=== PATIENT | female | born 1950 | race Caucasian/White ===

== ENCOUNTER 2023-01-30 07:20 | Day surgery (SDC) | payer MEDICARE, SELFPAY ==
--- NOTE | 2023-01-30 07:32 | FL_ITS ---
[address] [address] Patient Name: REINALDO MOONEY MRN: [id number] date: 1950 Sex: F Assigned Patient Location: [place] Current Patient Location: [place] Accession/Order Number: [id number] Exam Date: 01/30/2023 08:00 Report Date: 01/30/2023 12:33 At the request of: NON-STAFF PHYSICIAN Procedure: FL guided needle placement EXAMINATION: FL arthrogram hip LT HISTORY: Left Hip Degenerative Disease COMPARISON: No relevant comparison available. TECHNIQUE: An arthrogram was performed under fluoroscopic guidance using non-ionic contrast material in the usual sterile manner after obtaining informed consent. Standard level fluoroscopic mode of operation utilized. 1.3 minutes of fluoroscopy. 3 images FINDINGS: JOINT: Left hip NEEDLE: 25 gauge, 3.5 spinal needle. MEDICATION: 2cc buffered 1% lidocaine for subcutaneous anesthesia 2cc Omnipaque-240 iodinated contrast to visualize the joint space 40 mg Kenalog , 2 mL's of 0.5% bupivacaine, 3 cc of sterile saline injected into the joint space. TECHNIQUE: Anterior approach with prior localization of the femoral artery. A single stick was successful in gaining access to the joint space. CLINICAL: Immediate and near complete resolution of hip pain following the injection. COMPLICATIONS: None. FL/FL guided needle placement IMPRESSION: Technically successful left hip therapeutic arthrogram Electronically authenticated by: JONNA HATCH Date: 01/30/2023 12:33
--- NOTE | 2023-01-30 07:32 | FL_ITS ---
The [address] [address] Patient Name: REINALDO MOONEY MRN: [id number] date: 1950 Sex: F Assigned Patient Location: CT Current Patient Location: CT Accession/Order Number: [id number] Exam Date: 01/30/2023 08:00 Report Date: 01/30/2023 12:33 At the request of: NON-STAFF PHYSICIAN Procedure: FL arthrogram hip LT EXAMINATION: FL arthrogram hip LT HISTORY: Left Hip Degenerative Disease COMPARISON: No relevant comparison available. TECHNIQUE: An arthrogram was performed under fluoroscopic guidance using non-ionic contrast material in the usual sterile manner after obtaining informed consent. Standard level fluoroscopic mode of operation utilized. 1.3 minutes of fluoroscopy. 3 images FINDINGS: JOINT: Left hip NEEDLE: 25 gauge, 3.5 spinal needle. MEDICATION: 2cc buffered 1% lidocaine for subcutaneous anesthesia 2cc Omnipaque-240 iodinated contrast to visualize the joint space 40 mg Kenalog , 2 mL's of 0.5% bupivacaine, 3 cc of sterile saline injected into the joint space. TECHNIQUE: Anterior approach with prior localization of the femoral artery. A single stick was successful in gaining access to the joint space. CLINICAL: Immediate and near complete resolution of hip pain following the injection. COMPLICATIONS: None. FL/FL arthrogram hip LT IMPRESSION: Technically successful left hip therapeutic arthrogram Electronically authenticated by: JONNA HATCH Date: 01/30/2023 12:33
[2023-01-30] MEDS: BUPIVACAINE HCL 0.5% PF 50 MG/10 ML VIAL 2 ML INJ (08:30)
[2023-01-30] MEDS: TRIAMCINOLONE ACETONIDE 40 MG/ML VIAL INJ (08:30)
[2023-01-30 09:09] VITALS: BMI 36.3
[2023-01-30] MEDS: LIDOCAINE HCL 10 ML, SODIUM BICARBONATE 1 MEQ INJ (09:19)
== END 2023-01-30 08:45 | disposition home or self-care (01) ==
LOC: FL 07:21
PROVIDERS: Radiology Diagnostic Radiology; PCP Internal Medicine
DX: M16.12 Unilateral primary osteoarthritis, left hip (principal)
CPT/HCPCS: 73525; 77002; Q9966; Q9967